=== PATIENT | male | born 1960 | race Caucasian/White ===

== ENCOUNTER 2016-11-09 22:40 | Inpatient (IN) | payer OTHER ==
[~2016-11-09] VITALS: Ht 177.8 cm; Wt 84.1 kg
--- NOTE | ~2016-11-09 | CON ---
[place], [place] REPORT OF CONSULTATION NAME: BELINDA HAMPTON UNIT #: [id number] ROOM: 530 DOCTOR: EDUARDO RaphaelSHYANNE BIRTHDATE: [birth year] DOS: 11/10/2016 WOUND CARE CONSULT HISTORY OF PRESENT ILLNESS: This is a 56-year-old male who presented to the Emergency Department with complaints of increased edema and pain in his right leg since Monday. He apparently had been adjusting his antenna on his roof and had fallen and scraped both of his legs in the knee area and anterior tibias on the chimney and shingles of his roof, that was on Monday. He said he initially tried to clean them and then used some triple antibiotic ointment at home, but when I asked specifically if he really kept them covered, he did not really answer the question. He apparently went to the urgent care the day before with increased redness, swelling around the wounds and discomfort. He was sent home with an antibiotic and some type of topical antibiotic, it sounds like too, but he was not sure what the name of it was then, but despite this, the legs started to worsen with increased pain, swelling of the legs. PAST MEDICAL HISTORY: Significant for coronary artery disease. He is status post CABG in 1999, history of DVT of the right lower extremity, hypertension, hyperlipidemia. SOCIAL HISTORY: He is a smoker one about 1 pack per day since age of 16, does not use illicit drugs, and consumes alcohol. FAMILY HISTORY: Significant for coronary artery disease in the father and the mother who is healthy. ALLERGIES: No known drug allergies. CURRENT MEDICATIONS: He has been ordered vancomycin 1500 mg IV q. 12 hours and Zosyn 3.375 mg IV q. 6 hours. He is on DuoNebs q. 4 hours p.r.n., Restoril p.r.n., Zofran p.r.n., milk of mag p.r.n., Dulcolax p.r.n., [place] one tablet q. 4 hours p.r.n., Tylenol 650 q. 4 hours p.r.n. REVIEW OF SYSTEMS: Other than some pain and discomfort and redness and swelling of the right leg, he says today that the swelling has improved. The redness is improved and the pain is not as bad as it was. He has never had fevers or chills. He denies any chest pains or shortness of breath, nausea, vomiting, abdominal pains. He does state that he has had loose frequent stools since he has been admitted with the antibiotics, so that definitely is a problem for him at this time. There are no reports of weight gain or weight loss. There are no vision changes or dysphagia. No palpitations or dizziness. No dysuria or hematuria. He is able to ambulate. He is not diabetic. PHYSICAL EXAMINATION: VITAL SIGNS: He is afebrile, his pulse is 60, respirations 20, blood pressure is 100/68. GENERAL: This is a male who appears stable and in no acute distress, pleasant and cooperative to examination. HEENT: Extraocular movements are intact. Sclerae are anicteric. [place], [place] REPORT OF CONSULTATION NAME: BELINDA HAMPTON UNIT #: [id number] ROOM: [facility] DOCTOR: SHYANNE CLARK M.D. BIRTHDATE: [birth year] NECK: There is no JVD. LUNGS: Clear to auscultation. CARDIOVASCULAR: S1, S2 regular rate and rhythm. ABDOMEN: Soft, nontender, nondistended. EXTREMITIES: He has some trace edema of the right lower extremity. There is no calf pain. There is some erythema around on the right lower extremity, mostly around the wound. There is still some warmth present and it is tender right near the wound, but not distally. He has got good peripheral pulses. His feet are warm and there is normal capillary refill. He has a fairly large wound on the right anterior leg, that is measuring approximately 9 cm x the measurements in the chart say 7.5, but I got 6.8. There is really no depth at this point and it covered in necrotic tissue with a large amount of fibrin slough. The wounds on his left, he has got 2 separate wounds that are approximately 2 cm in length x 1 cm in width is one wound, the other wound is 2 cm in length x 1 cm in width as well. Two separate wounds that have some dried adherent slough present, those really there is erythema present on the pictures from before antibiotics were started, but the erythema has definitely improved upon examination today. NEUROLOGIC: He is intact and nonfocal. LABORATORY DATA: His white count yesterday or just 6 hours ago was 13.1, now it is 12.8. His chem-7 is within normal limits with glucose of 88. LFTs are normal. He had a lower extremity venous Doppler done this morning, which showed no evidence of DVT. A wound culture yesterday is still pending. Gram stain done is still pending at this time. Due to the extent of necrotic tissue present in the base of the wound, I recommended a debridement. The patient agreed to this. The area was cleansed and prepped with Cetacaine spray for topical anesthesia and debridement was done to remove necrotic tissue only, fibrin and slough was removed with a curette as well as a #15 blade. There was a moderate amount of bleeding that was controlled with pressure. The patient's post debridement measurements are unchanged. The patient, however, did not tolerate debridement very well, so only a minimal debridement was able to be accomplished due to the patient's complaint of pain; however, I was able to remove at least the top layer of some of the necrotic tissue. A swab culture was obtained post debridement of one of the areas centrally that was bleeding and that was taken for culture. ASSESSMENT AND PLAN: Traumatic wounds of bilateral legs with infection and necrotic tissue. He is on broad-spectrum antibiotics. It looks like cultures are pending. I would use TheraHoney for now, Versatel, and 4 x 4's and Kerlix and change it on a daily basis. If the wounds do not improve with this regimen, we may want to consider utilizing Santyl instead, but I would like to try this first. I did do another culture, we should follow the cultures to help guide some of the antimicrobial medications and I think that he is going to have these wounds going to take some time to heal as they are fairly large and extensive and he should follow up in the Wound Clinic upon discharge. [place], [place] REPORT OF CONSULTATION NAME: MEMOBELINDA UNIT #: [id number] ROOM: [facility] DOCTOR: SHYANNE CLARK M.D. BIRTHDATE: [birth year] SHYANNE CLARK MD CM:CONSTR:REPORT OF CONSULTATION 1453 11/11/16 0532 interface
[2016-11-09 22:46] VITALS: BP 126/77
[2016-11-09 23:30] LABS: BASO # 0.1 10*3/uL (0.0-0.1); BASO % 0.9 % (0.0-1.0); EOS # 0.8 10*3/uL (0.0-0.4); EOS % 5.8 % (1.0-4.0); HEMATOCRIT 45.2 % (42.0-52.0); HEMOGLOBIN 15.4 g/dl (14.0-18.0); IG # 0.1 10*3/uL (0.0-0.1); LYMPH # 3.5 10*3/uL (1.3-4.4); LYMPH % 26.3 % (27.0-41.0); MEAN CELL VOLUME 97.6 fl (80.0-94.0); MEAN CORPUSCULAR HGB 33.3 pg (27.0-31.0); MEAN CORPUSCULAR HGB CONC 34.1 g/dl (33.0-37.0); MONO # 0.9 10*3/uL (0.1-1.0); MONO % 7.1 % (3.0-9.0); NEUT # 7.8 10*3/uL (2.3-7.9); NEUT % 59.4 % (47.0-73.0); PLATELET COUNT AUTOMATED 231 10*3/uL (130-400); RED BLOOD COUNT 4.63 10*6/uL (4.50-5.90); RED CELL DISTRI WIDTH 12.7 % (0-14.5); WHITE BLOOD COUNT 13.1 10*3/uL (4.8-10.8)
[2016-11-09] MEDS ORDERED: PRINIVIL5 M1 PO (23:45)
[2016-11-09] MEDS ORDERED: ASPIRIN81 M1 PO (23:46)
[2016-11-09] MEDS ORDERED: COREG25 MG PO (23:46)
[2016-11-09 23:47] LABS: ALBUMIN 3.8 gm/dl (3.1-4.5); ALKALINE PHOSPHATASE 60 U/L (45-117); BILIRUBIN, TOTAL 0.8 mg/dl (0.2-1.0); BUN 13 mg/dl (7-24); CARBON DIOXIDE 28 mmol/L (21-32); CHLORIDE 103 mmol/L (98-107); EST GLOM FILT AFRICAN AMERICAN > 60 ml/min; GLUCOSE 91 mg/dL (65-99); POTASSIUM 4.3 mmol/L (3.5-5.1); SGOT/AST 24 IU/L (3-35); SGPT/ALT 26 U/L (12-78); SODIUM 139 mmol/L (136-145); TOTAL PROTEIN 7.7 gm/dL (6.4-8.2)
[2016-11-09] MEDS ORDERED: XARELTO10 MG PO (23:47)
[2016-11-09] MEDS ORDERED: CEPHALEXIN500 M1 PO (23:47)
[2016-11-09] MEDS ORDERED: ANTIBIOTIC O500 U/GM T (23:47)
[2016-11-09] MEDS ORDERED: ATORVASTATIN CA10 M1 PO (23:47)
[2016-11-10 00:30] VITALS: BP 103/87
[2016-11-10 07:21] LABS: BASO # 0.1 10*3/uL (0.0-0.1); BASO % 0.6 % (0.0-1.0); EOS # 0.7 10*3/uL (0.0-0.4); EOS % 5.2 % (1.0-4.0); HEMOGLOBIN 14.4 g/dl (14.0-18.0); IG # 0.1 10*3/uL (0.0-0.1); LYMPH # 3.1 10*3/uL (1.3-4.4); LYMPH % 24.1 % (27.0-41.0); MEAN CELL VOLUME 98.6 fl (80.0-94.0); MEAN CORPUSCULAR HGB 33.8 pg (27.0-31.0); MEAN CORPUSCULAR HGB CONC 34.3 g/dl (33.0-37.0); MONO # 0.9 10*3/uL (0.1-1.0); MONO % 7.3 % (3.0-9.0); NEUT % 62.3 % (47.0-73.0); PLATELET COUNT AUTOMATED 216 10*3/uL (130-400); RED BLOOD COUNT 4.26 10*6/uL (4.50-5.90); RED CELL DISTRI WIDTH 12.8 % (0-14.5); WHITE BLOOD COUNT 12.8 10*3/uL (4.8-10.8)
[2016-11-10 07:34] LABS: BUN 10 mg/dl (7-24); CARBON DIOXIDE 31 mmol/L (21-32); CHLORIDE 107 mmol/L (98-107); GLUCOSE 88 mg/dL (65-99); POTASSIUM 4.3 mmol/L (3.5-5.1); SODIUM 140 mmol/L (136-145)
[2016-11-10 07:35] LABS: EST GLOM FILT AFRICAN AMERICAN > 60 ml/min
[2016-11-10 07:38] LABS: CHOLESTEROL 126 mg/dL (<200); HDL CHOLESTEROL 51 mg/dl (40-60); LDL CHOLESTEROL 54 mg/dL (9-159); TRIGLYCERIDES 103 mg/dl (<150); VLDL CHOLESTEROL 21 mg/dL (6-40)
[2016-11-10 08:00] VITALS: BP 100/68
[2016-11-10] MEDS ORDERED: NATURE'S BLEND F1 MG PO (15:43)
[2016-11-10] MEDS ORDERED: METFORMIN750 MG PO (15:44)
[2016-11-10] MEDS ORDERED: VITAMIN D1000 IU PO (15:44)
[2016-11-10] MEDS ORDERED: ZESTRIL5 MG PO (15:45)
[2016-11-10] MEDS ORDERED: XARELTO20 M1 PO (15:45)
[2016-11-10] MEDS ORDERED: LIPITOR40 MG PO (15:46)
[2016-11-10] MEDS ORDERED: COREG6.25 MG PO (15:46)
[2016-11-10] MEDS ORDERED: XANAX0.5 MG PO (15:47)
[2016-11-10] MEDS ORDERED: CYMBALTA20 M1 PO (15:51)
[2016-11-10] MEDS ORDERED: RESTORIL15 MG PO (15:55)
[2016-11-10 16:00] VITALS: BP 130/72
[2016-11-10 20:00] VITALS: BP 113/66
[2016-11-11] VITALS: BP 105/67
[2016-11-11 06:35] LABS: BASO # 0.1 10*3/uL (0.0-0.1); BASO % 0.7 % (0.0-1.0); EOS # 0.5 10*3/uL (0.0-0.4); EOS % 6.2 % (1.0-4.0); HEMATOCRIT 42.2 % (42.0-52.0); HEMOGLOBIN 14.2 g/dl (14.0-18.0); IG # 0.1 10*3/uL (0.0-0.1); LYMPH # 2.4 10*3/uL (1.3-4.4); LYMPH % 28.6 % (27.0-41.0); MEAN CELL VOLUME 97.9 fl (80.0-94.0); MEAN CORPUSCULAR HGB 32.9 pg (27.0-31.0); MEAN CORPUSCULAR HGB CONC 33.6 g/dl (33.0-37.0); MEAN PLATELET VOLUME 9.9 fl (9.6-12.3); MONO # 0.6 10*3/uL (0.1-1.0); MONO % 7.2 % (3.0-9.0); NEUT # 4.8 10*3/uL (2.3-7.9); NEUT % 56.5 % (47.0-73.0); PLATELET COUNT AUTOMATED 222 10*3/uL (130-400); RED BLOOD COUNT 4.31 10*6/uL (4.50-5.90); RED CELL DISTRI WIDTH 12.5 % (0-14.5); WHITE BLOOD COUNT 8.4 10*3/uL (4.8-10.8)
== END 2016-11-11 05:54 | disposition left against medical advice (07) | DRG 571 ==
LOC: ED 22:40 → EDHOLD 11-10 00:07 → 5E 11-10 00:07
PROVIDERS: Internal Medicine; Physician Assistant; Student in an Organized Health Care Education/Training Program
PROC: 0HBKXZZ Excision of Right Lower Leg Skin, External Approach (ICD-10-PCS; principal; 2016-11-11)
DX: L03.115 Cellulitis of right lower limb (principal); I25.810 Atherosclerosis of coronary artery bypass graft(s) without angina pectoris; I10 Essential (primary) hypertension; Z53.21 Procedure and treatment not carried out due to patient leaving prior to being seen by health care provider; E78.5 Hyperlipidemia, unspecified; F17.210 Nicotine dependence, cigarettes, uncomplicated; D72.829 Elevated white blood cell count, unspecified; S81.802A Unspecified open wound, left lower leg, initial encounter; S81.801A Unspecified open wound, right lower leg, initial encounter; Z86.718 Personal history of other venous thrombosis and embolism; Z82.49 Family history of ischemic heart disease and other diseases of the circulatory system; Z79.82 Long term (current) use of aspirin; Z79.899 Other long term (current) drug therapy; Z71.6 Tobacco abuse counseling; Z95.1 Presence of aortocoronary bypass graft

== ENCOUNTER → 2016-12-09 | Day surgery (SDC) | payer OTHER ==
[~2016-12-09] VITALS: Ht 177.8 cm; Wt 81.6 kg
[~2016-12-09] MED LIST: ANTIBIOTIC O500 U/GM T; ASPIRIN81 M1 PO; ATORVASTATIN CA10 M1 PO; CEPHALEXIN500 M1 PO; COREG25 MG PO; COREG6.25 MG PO; CYMBALTA20 M1 PO; LIPITOR40 MG PO; METFORMIN750 MG PO; NATURE'S BLEND F1 MG PO; PRINIVIL5 M1 PO; RESTORIL15 MG PO; VITAMIN D1000 IU PO; XANAX0.5 MG PO; XARELTO10 MG PO; XARELTO20 M1 PO; ZESTRIL5 MG PO
[2016-12-09 09:33] VITALS: BP 141/74
[2016-12-09 10:05] VITALS: BP 122/72
[2016-12-09 10:18] VITALS: BP 112/64
== END | disposition home or self-care (01) ==
LOC: SDC 12-06 08:45
DX: Z12.11 Encounter for screening for malignant neoplasm of colon (principal); D12.5 Benign neoplasm of sigmoid colon; I10 Essential (primary) hypertension; I25.2 Old myocardial infarction; I25.10 Atherosclerotic heart disease of native coronary artery without angina pectoris; F32.9 Major depressive disorder, single episode, unspecified; E78.00 Pure hypercholesterolemia, unspecified; Z95.1 Presence of aortocoronary bypass graft; Z86.718 Personal history of other venous thrombosis and embolism; F17.210 Nicotine dependence, cigarettes, uncomplicated

== ENCOUNTER 2017-10-02 10:39 | Emergency (ER) | payer OTHER ==
[~2017-10-02] VITALS: Ht 177.8 cm; Wt 83.9 kg
[2017-10-02 11:05] LABS: BASO # 0.1 10*3/uL (0.0-0.1); BASO % 0.7 % (0.0-1.0); EOS # 0.5 10*3/uL (0.0-0.4); EOS % 4.6 % (1.0-4.0); HEMATOCRIT 44.5 % (42.0-52.0); HEMOGLOBIN 15.5 g/dl (14.0-18.0); LYMPH # 1.5 10*3/uL (1.3-4.4); LYMPH % 14.8 % (27.0-41.0); MEAN CELL VOLUME 93.1 fl (80.0-94.0); MEAN CORPUSCULAR HGB 32.4 pg (27.0-31.0); MEAN CORPUSCULAR HGB CONC 34.8 g/dl (33.0-37.0); MEAN PLATELET VOLUME 9.8 fl (9.6-12.3); MONO # 0.6 10*3/uL (0.1-1.0); MONO % 5.7 % (3.0-9.0); NEUT # 7.5 10*3/uL (2.3-7.9); NEUT % 73.9 % (47.0-73.0); PLATELET COUNT AUTOMATED 226 10*3/uL (130-400); RED BLOOD COUNT 4.78 10*6/uL (4.50-5.90); RED CELL DISTRI WIDTH 12.2 % (0-14.5); WHITE BLOOD COUNT 10.2 10*3/uL (4.8-10.8)
[2017-10-02 11:23] LABS: ALBUMIN 3.8 gm/dl (3.1-4.5); ALKALINE PHOSPHATASE 62 U/L (45-117); BUN 10 mg/dl (7-24); CHLORIDE 102 mmol/L (98-107); CREATININE 1.03 mg/dL (0.70-1.30); POTASSIUM 3.7 mmol/L (3.5-5.1); SGOT/AST 21 IU/L (3-35); SGPT/ALT 26 U/L (12-78); SODIUM 140 mmol/L (136-145); TOTAL PROTEIN 7.4 gm/dL (6.4-8.2)
[2017-10-02] MEDS ORDERED: NAPROSYN500 MG PO (11:37)
[2017-10-02] MEDS ORDERED: CHLORZOXAZONE500 M2 PO (11:37)
== END 2017-10-02 11:39 | disposition home or self-care (01) ==
LOC: ED 10:39
PROVIDERS: Nurse Practitioner Family
DX: M79.662 Pain in left lower leg (principal); I10 Essential (primary) hypertension; I25.10 Atherosclerotic heart disease of native coronary artery without angina pectoris; E78.5 Hyperlipidemia, unspecified; F17.200 Nicotine dependence, unspecified, uncomplicated; Z86.718 Personal history of other venous thrombosis and embolism; Z79.899 Other long term (current) drug therapy

== ENCOUNTER 2017-12-08 16:28 | Emergency (ER) | payer OTHER ==
[~2017-12-08] VITALS: Wt 81.6 kg
[~2017-12-08 16:28] MED LIST changes: +CHLORZOXAZONE500 M2 PO; +NAPROSYN500 MG PO
[2017-12-08 16:44] LABS: BASO # 0.1 10*3/uL (0.0-0.1); BASO % 0.8 % (0.0-1.0); EOS # 0.1 10*3/uL (0.0-0.4); EOS % 1.3 % (1.0-4.0); HEMATOCRIT 49.1 % (42.0-52.0); LYMPH # 1.7 10*3/uL (1.3-4.4); LYMPH % 16.6 % (27.0-41.0); MEAN CELL VOLUME 95.3 fl (80.0-94.0); MEAN CORPUSCULAR HGB CONC 34.6 g/dl (33.0-37.0); MEAN PLATELET VOLUME 9.6 fl (9.6-12.3); MONO # 0.6 10*3/uL (0.1-1.0); MONO % 5.6 % (3.0-9.0); NEUT # 7.9 10*3/uL (2.3-7.9); NEUT % 75.2 % (47.0-73.0); PLATELET COUNT AUTOMATED 226 10*3/uL (130-400); RED BLOOD COUNT 5.15 10*6/uL (4.50-5.90); RED CELL DISTRI WIDTH 13.2 % (0-14.5); WHITE BLOOD COUNT 10.4 10*3/uL (4.8-10.8)
[2017-12-08 17:15] LABS: ALBUMIN 3.9 gm/dl (3.1-4.5); ALKALINE PHOSPHATASE 64 U/L (45-117); BUN 7 mg/dl (7-24); CHLORIDE 106 mmol/L (98-107); CREATININE 1.01 mg/dL (0.70-1.30); LIPASE 195 U/L (73-393); POTASSIUM 3.8 mmol/L (3.5-5.1); SGOT/AST 23 IU/L (3-35); SGPT/ALT 30 U/L (12-78); SODIUM 140 mmol/L (136-145); TOTAL PROTEIN 7.6 gm/dL (6.4-8.2)
[2017-12-08 17:17] LABS: TROPONIN I < 0.015 ng/ml (<0.045)
[2017-12-08] MEDS ORDERED: ZANTAC 150150 MG PO (17:58)
[2017-12-08] MEDS ORDERED: ZOFRAN4 MG PO (17:58)
[2017-12-08] MEDS ORDERED: SUNMARK OMEPRAZ20 MG PO (17:58)
[2017-12-08] MEDS ORDERED: CARAFATE1 G1 PO (17:58)
== END 2017-12-08 18:28 | disposition home or self-care (01) ==
LOC: ED 16:28
PROVIDERS: Nurse Practitioner Family
DX: K29.00 Acute gastritis without bleeding (principal); I10 Essential (primary) hypertension; I25.10 Atherosclerotic heart disease of native coronary artery without angina pectoris; E78.5 Hyperlipidemia, unspecified; F17.200 Nicotine dependence, unspecified, uncomplicated; Z79.899 Other long term (current) drug therapy; Z86.718 Personal history of other venous thrombosis and embolism

== ENCOUNTER 2017-12-17 12:43 | Inpatient (IN) | payer OTHER ==
[~2017-12-17] VITALS: Ht 177.8 cm; Wt 85.4 kg
--- NOTE | ~2017-12-17 | CON ---
[place], [place] REPORT OF CONSULTATION NAME: BELINDA HAMPTON UNIT #: [id number] ROOM: 406 DOCTOR: OSIEL MORRISROSANGELADARIUS BIRTHDATE: [birth year] DOS: 12/18/2017 HISTORY OF PRESENT ILLNESS: The patient is a 57-year-old male who has presented to the Emergency Room with a chief complaint of abdominal pain, left upper quadrant pain, with a history of gastritis in the past. The patient apparently revisited the ER for the same symptomatology, nausea and epigastric pain. His white blood cell at the time of visit was 10.9, H and H of 16 and 48, lactic acid 1.1. Comprehensive metabolic panel, BUN and creatinine 6 and 0.9. Electrolytes balanced. Liver function tests normal. Lipase 610. C-reactive protein 1.5. Sonogram of the abdomen and gallbladder was done, mildly heterogeneous hepatic parenchyma, likely to mild hepatic steatosis, and no cholelithiasis, gallbladder wall thickening or biliary dilations. They were all negative. Urinalysis, 2+ ketones. CT scan of the abdomen and pelvis was organized, findings suspicious for proximal duodenitis and possibly distal gastritis, no evidence of perforation. CBC with differential was reassessed. Hemoglobin A1c was normal. INR was 1. Comprehensive metabolic panel was readdressed. Thyroid normal. LFTs normal. CT scan reports no evidence of pancreatitis mentioned, and liver, spleen, adrenal glands, pancreas they have been declared within normal limits. PAST MEDICAL HISTORY: Coronary artery disease, hemorrhoid, gastritis, DVT, hyperlipidemia, hypertension, nicotine dependency. PAST SURGICAL HISTORY: Coronary artery bypass x 3 grafts, coronary artery stents. SOCIAL HISTORY: Occasional drinker. Active smoker. FAMILY HISTORY: Noncontributory. ALLERGIES: To no known medications. MEDICATIONS: List has been reviewed, including naproxen 500 mg b.i.d., on the other hand on omeprazole 20 mg daily. He has been taking ranitidine also 150 mg b.i.d. in addition to Carafate 1 gram t.i.d. REVIEW OF SYSTEMS: HEENT: Denies double vision or blurred vision. RESPIRATORY: Denies acute shortness of breath. CARDIOVASCULAR: Denies acute chest pain. DIGESTIVE SYSTEM: Nausea, vomiting, epigastric pain. No hematemesis. No hematochezia. No diarrhea. PHYSICAL EXAMINATION: VITAL SIGNS: Stable. HEENT: Head normocephalic, nontraumatic. Mouth and buccal mucosa benign. NECK: Supple. No thyromegaly. No cervical lymphadenopathy. CHEST: Symmetric anatomy, equal expansion. No wheeze. No rhonchi. HEART: Normal sinus rhythm. No gallop. No murmur. ABDOMEN: Soft. No hepato-organomegaly. Bowel sounds present. No pulsatile [place], [place] REPORT OF CONSULTATION NAME: BELINDA HAMPTON UNIT #: [id number] ROOM: [facility] DOCTOR: NAEEM CARTAGENA MD BIRTHDATE: [birth year] mass. Some epigastric tenderness. EXTREMITIES: Dry. No cyanosis. No pedal edema. NEUROLOGIC: Alert and oriented to time, place, person. IMPRESSION: 1. Hyperlipasemia. 2. Left upper quadrant pain. 3. Hypertension. 4. Hypercholesterolemia. 5. Gastritis history. 6. Coronary artery disease. OTHER ADJUNCTIVE DIAGNOSES: As outlined in paragraph, past medical and surgical history. PLAN AND DISCUSSION: We are going to organize an endoscopy of upper GI tract due to the symptomatology of the patient. Thank you very much indeed. NAEEM CARTAGENA MD CM:CONSTR:REPORT OF CONSULTATION 1409 12/19/17 0014 interface
--- NOTE | ~2017-12-17 | O ---
[place], [place] OPERATIVE NOTE NAME: BELINDA HAMPTON UNIT #: [id number] ROOM: 406 DOCTOR: NAEEM CARTAGENA MD BIRTHDATE: [birth year] DOS: 12/18/2017 GASTROENDOSCOPIC REPORT BRIEF HISTORY: The patient has presented to the Emergency Room with nausea, epigastric distress, dyspepsia, left upper quadrant pain, sensation of fullness. The patient's radiologic studies, all main organs have been within normal limits, suspected duodenal thickening and gastric thickening has been reported. The patient has been on naproxen 500 mg b.i.d., on the other hand on H2 michela and PPI therapy and sucralfate management per ER. PROCEDURE: Today's procedure part of investigation is panendoscopy plus biopsy. PREMEDICATION: Propofol. SCOPE: Olympus forward-viewing gastroscope Q10 video. REPORT: After putting the patient in left lateral position and application of lubricant to the scope, the scope was introduced, thereafter under direct visualization advanced through the length of esophagus without difficulty. A 2 cm hiatal hernia was noticed. Gastric pouch was entered, mild gastritis seen. Antrum was biopsied. Duodenal bulb, second and third part within normal limits. GI reflexion of the scope reveals cardia to be benign. Air was suctioned out. The patient was extubated, tolerated the procedure well. IMPRESSION: 1. Small hiatal hernia. 2. Gastritis. PLAN AND DISCUSSION: Continuation with omeprazole 40 mg daily, discontinuation of ranitidine, and completing the supply of Carafate that he has; no longer needs refill on the Carafate. On the other hand, he should take his naproxen when he needs it with antiacid, i.e., Gaviscon tablet. Antireflux measures and stop smoking. As far as lipase is concerned, this should be a reactive issue or adverse stimulation of nicotine consumption in addition to alcohol. We are going to repeat lipase. [place], [place] OPERATIVE NOTE NAME: BELINDA HAMPTON UNIT #: [id number] ROOM: 406 DOCTOR: NAEEM CARTAGENA MD BIRTHDATE: [birth year] NAEEM CARTAGENA MD CM:OPRECORD:OPERATIVE NOTE 1409 [id number] NAEEM CARTAGENA MD 12/19/17 0012 interface
[2017-12-17 12:43] VITALS: BP 141/79
[~2017-12-17 12:43] MED LIST changes: +CARAFATE1 G1 PO; +SUNMARK OMEPRAZ20 MG PO; +ZANTAC 150150 MG PO; +ZOFRAN4 MG PO
[2017-12-17 13:49] LABS: BASO # 0.1 10*3/uL (0.0-0.1); BASO % 0.7 % (0.0-1.0); EOS # 0.3 10*3/uL (0.0-0.4); EOS % 2.8 % (1.0-4.0); HEMATOCRIT 48.9 % (42.0-52.0); HEMOGLOBIN 16.8 g/dl (14.0-18.0); LYMPH # 1.7 10*3/uL (1.3-4.4); LYMPH % 15.7 % (27.0-41.0); MEAN CELL VOLUME 96.8 fl (80.0-94.0); MEAN CORPUSCULAR HGB 33.3 pg (27.0-31.0); MEAN CORPUSCULAR HGB CONC 34.4 g/dl (33.0-37.0); MEAN PLATELET VOLUME 10.2 fl (9.6-12.3); MONO # 0.8 10*3/uL (0.1-1.0); MONO % 7.4 % (3.0-9.0); NEUT % 72.9 % (47.0-73.0); PLATELET COUNT AUTOMATED 247 10*3/uL (130-400); RED BLOOD COUNT 5.05 10*6/uL (4.50-5.90); RED CELL DISTRI WIDTH 13.2 % (0-14.5); WHITE BLOOD COUNT 10.9 10*3/uL (4.8-10.8)
[2017-12-17 14:00] VITALS: BP 138/79
[2017-12-17 14:08] LABS: ALBUMIN 3.7 gm/dl (3.1-4.5); ALKALINE PHOSPHATASE 58 U/L (45-117); BUN 6 mg/dl (7-24); CHLORIDE 105 mmol/L (98-107); CREATININE 0.95 mg/dL (0.70-1.30); LIPASE 610 U/L (73-393); POTASSIUM 4.3 mmol/L (3.5-5.1); SGOT/AST 20 IU/L (3-35); SGPT/ALT 27 U/L (12-78); SODIUM 140 mmol/L (136-145); TOTAL PROTEIN 7.8 gm/dL (6.4-8.2)
[2017-12-17 15:24] LABS: BILIRUBIN NEGATIVE (NEGATIVE); BLOOD TRACE-INTACT (NEGATIVE); CLARITY CLEAR (CLEAR); COLOR YELLOW (YELLOW); GLUCOSE NEGATIVE (NEGATIVE); KETONE 2+ (NEGATIVE); LEUKO ESTERASE NEGATIVE (NEGATIVE); NITRITE NEGATIVE (NEGATIVE); PH 5.5 (5.0-9.0); SPECIFIC GRAVITY 1.025 (1.005-1.030); UROBILINOGEN 0.2 E.U./dl (0.2-1.0)
[2017-12-17 15:25] VITALS: BP 124/68
[2017-12-17 20:00] VITALS: BP 160/77
[2017-12-18] VITALS (8 sets, daily range): BP systolic 115–152; BP diastolic 66–84
[2017-12-18 06:29] LABS: BASO # 0.1 10*3/uL (0.0-0.1); BASO % 0.7 % (0.0-1.0); EOS # 0.4 10*3/uL (0.0-0.4); EOS % 4.2 % (1.0-4.0); HEMATOCRIT 45.2 % (42.0-52.0); HEMOGLOBIN 14.8 g/dl (14.0-18.0); LYMPH # 2.3 10*3/uL (1.3-4.4); LYMPH % 21.6 % (27.0-41.0); MEAN CELL VOLUME 99.1 fl (80.0-94.0); MEAN CORPUSCULAR HGB 32.5 pg (27.0-31.0); MEAN CORPUSCULAR HGB CONC 32.7 g/dl (33.0-37.0); MEAN PLATELET VOLUME 10.3 fl (9.6-12.3); MONO # 0.8 10*3/uL (0.1-1.0); MONO % 7.7 % (3.0-9.0); NEUT # 6.8 10*3/uL (2.3-7.9); NEUT % 65.3 % (47.0-73.0); PLATELET COUNT AUTOMATED 217 10*3/uL (130-400); RED BLOOD COUNT 4.56 10*6/uL (4.50-5.90); RED CELL DISTRI WIDTH 13.2 % (0-14.5); WHITE BLOOD COUNT 10.4 10*3/uL (4.8-10.8)
[2017-12-18 07:01] LABS: ALBUMIN 3.2 gm/dl (3.1-4.5); ALKALINE PHOSPHATASE 44 U/L (45-117); BUN 5 mg/dl (7-24); CHLORIDE 106 mmol/L (98-107); CHOLESTEROL 191 mg/dL (<200); CREATININE 0.93 mg/dL (0.70-1.30); FREE T4 1.08 ng/dl (0.76-1.46); HDL CHOLESTEROL 35 mg/dl (40-60); LDL CHOLESTEROL 129 mg/dL (9-159); PHOSPHOROUS 2.5 mg/dL (2.5-4.9); POTASSIUM 4.1 mmol/L (3.5-5.1); SGOT/AST 16 IU/L (3-35); SGPT/ALT 22 U/L (12-78); SODIUM 143 mmol/L (136-145); TOTAL PROTEIN 6.3 gm/dL (6.4-8.2); TRIGLYCERIDES 136 mg/dl (<150); VLDL CHOLESTEROL 27 mg/dL (6-40)
[2017-12-19] VITALS: BP 138/70
[2017-12-19 06:57] LABS: BASO # 0.1 10*3/uL (0.0-0.1); BASO % 0.7 % (0.0-1.0); EOS # 0.5 10*3/uL (0.0-0.4); EOS % 5.9 % (1.0-4.0); HEMATOCRIT 42.8 % (42.0-52.0); HEMOGLOBIN 14.4 g/dl (14.0-18.0); LYMPH # 1.7 10*3/uL (1.3-4.4); LYMPH % 20.6 % (27.0-41.0); MEAN CELL VOLUME 98.4 fl (80.0-94.0); MEAN CORPUSCULAR HGB 33.1 pg (27.0-31.0); MEAN CORPUSCULAR HGB CONC 33.6 g/dl (33.0-37.0); MEAN PLATELET VOLUME 9.8 fl (9.6-12.3); MONO # 0.7 10*3/uL (0.1-1.0); MONO % 8.6 % (3.0-9.0); NEUT # 5.3 10*3/uL (2.3-7.9); NEUT % 63.6 % (47.0-73.0); PLATELET COUNT AUTOMATED 196 10*3/uL (130-400); RED BLOOD COUNT 4.35 10*6/uL (4.50-5.90); WHITE BLOOD COUNT 8.4 10*3/uL (4.8-10.8)
[2017-12-19 07:22] LABS: BUN 7 mg/dl (7-24); CHLORIDE 106 mmol/L (98-107); CREATININE 0.86 mg/dL (0.70-1.30); LIPASE 567 U/L (73-393); SODIUM 141 mmol/L (136-145)
[2017-12-19 08:00] VITALS: BP 116/82
[2017-12-19 13:00] VITALS: BP 132/80
[2017-12-19] MEDS ORDERED: NAPROSYN500 MG PO (14:04)
[2017-12-19] MEDS ORDERED: GAVISCON ES TA1 EACH PO (14:04)
[2017-12-19] MEDS ORDERED: NORCO 5-325 TA1 EACH PO (14:04)
[2017-12-19] MEDS ORDERED: SUNMARK OMEPRAZ20 MG PO (14:04)
== END 2017-12-19 14:55 | disposition home or self-care (01) | DRG 392 ==
LOC: ED 12:43 → EDHOLD 15:16 → 4E 15:16
PROVIDERS: Family Medicine; Internal Medicine; Internal Medicine Gastroenterology; Physician Assistant
PROC: 0DB68ZX Excision of Stomach, Via Natural or Artificial Opening Endoscopic, Diagnostic (ICD-10-PCS; principal; 2017-12-18)
DX: K29.70 Gastritis, unspecified, without bleeding (principal); E72.3 Disorders of lysine and hydroxylysine metabolism; E78.00 Pure hypercholesterolemia, unspecified; E78.5 Hyperlipidemia, unspecified; I10 Essential (primary) hypertension; R74.8 Abnormal levels of other serum enzymes; K29.80 Duodenitis without bleeding; I25.10 Atherosclerotic heart disease of native coronary artery without angina pectoris; K44.9 Diaphragmatic hernia without obstruction or gangrene; Z71.6 Tobacco abuse counseling; Z86.718 Personal history of other venous thrombosis and embolism; Z72.0 Tobacco use; Z79.899 Other long term (current) drug therapy; Z95.1 Presence of aortocoronary bypass graft; Z82.49 Family history of ischemic heart disease and other diseases of the circulatory system

== ENCOUNTER → 2018-06-02 | Outpatient (CLI) | payer OTHER ==
[~2018-06-02] MED LIST changes: +GAVISCON ES TA1 EACH PO; +NORCO 5-325 TA1 EACH PO
== END | disposition home or self-care (01) ==
LOC: US 08:57
DX: R10.11 Right upper quadrant pain (principal); R11.2 Nausea with vomiting, unspecified

== ENCOUNTER → 2018-06-21 | Outpatient (CLI) | payer OTHER ==
[~2018-06-21] MED LIST changes: +ATIVAN1 MG PO; +VITAMIN B12-FO1 EACH PO
== END | disposition home or self-care (01) ==
LOC: NM 07:00
DX: R10.11 Right upper quadrant pain (principal); R11.0 Nausea; R63.4 Abnormal weight loss; R63.0 Anorexia

== ENCOUNTER → 2018-07-06 | Day surgery (SDC) | payer OTHER ==
[~2018-07-06] VITALS: Ht 177.8 cm; Wt 72.6 kg
[2018-07-06 10:30] VITALS: BP 125/78
--- NOTE | 2018-07-06 13:30 | NUR ---
ERCP CANCELLED DUE TO SCOPE MALFUNCTION. DR CARTAGENA TALKED TO PATIENT AND EXPLAINED. PT EXPRESSED UNDERSTANDING. IV THERAPY DISCONTINUED. LUNCH PROVIDED TO PATIENT. PETER OWUSU RN
== END | disposition home or self-care (01) ==
LOC: SDC 07-04 14:00
DX: R10.11 Right upper quadrant pain (principal); Z53.8 Procedure and treatment not carried out for other reasons

== ENCOUNTER → 2019-08-08 | Outpatient (CLI) | payer OTHER | END | disposition home or self-care (01) | LOC: US 13:21 | DX: M79.662 Pain in left lower leg (principal) ==

== ENCOUNTER → 2023-03-01 | Outpatient (CLI) | payer OTHER ==
[2023-03-01 09:14] LABS: HEMATOCRIT 50.8 % (42.0-52.0); MEAN CORPUSCULAR HGB 34.4 pg (27.0-31.0); MEAN CORPUSCULAR HGB CONC 34.1 g/dl (33.0-37.0); MEAN PLATELET VOLUME 9.7 fl (9.6-12.3); RED BLOOD COUNT 5.03 10*6/uL (4.50-5.90); RED CELL DISTRI WIDTH 12.6 % (0-14.5); WHITE BLOOD COUNT 9.5 10*3/uL (4.8-10.8)
[2023-03-01 09:41] LABS: ALKALINE PHOSPHATASE 51 U/L (46-116); BUN 9 mg/dl (9-23); CHLORIDE 105 mmol/L (98-107); CHOLESTEROL 205 mg/dL (<200); GAMMA GLUTAMYL TRANSPEPTIDASE 35 U/L (0-73); LDL CHOLESTEROL 124 mg/dL (9-159); POTASSIUM 3.9 mmol/L (3.4-5.1); SGPT/ALT 10 U/L (10-49); TOTAL PROTEIN 6.9 gm/dL (6.0-8.0); TRIGLYCERIDES 112 mg/dl (<150)
[2023-03-01 09:46] LABS: VITAMIN D, 25-HYDROXY 30.8 ng/mL (30-100)
== END | disposition home or self-care (01) ==
LOC: LAB 08:25
PROVIDERS: ATTEND Family Medicine
DX: Z00.00 Encounter for general adult medical examination without abnormal findings (principal); Z12.5 Encounter for screening for malignant neoplasm of prostate; E78.00 Pure hypercholesterolemia, unspecified; E55.9 Vitamin D deficiency, unspecified; E03.9 Hypothyroidism, unspecified; I25.10 Atherosclerotic heart disease of native coronary artery without angina pectoris; Z87.891 Personal history of nicotine dependence

== ENCOUNTER → 2023-03-23 | Outpatient (CLI) | payer OTHER | END | disposition home or self-care (01) | LOC: CARD 00:05 | PROVIDERS: ATTEND Family Medicine | DX: I34.0 Nonrheumatic mitral (valve) insufficiency (principal); F10.20 Alcohol dependence, uncomplicated ==

== ENCOUNTER 2023-04-16 09:12 | Emergency (ER) | payer OTHER ==
[~2023-04-16] VITALS: Ht 177.8 cm; Wt 77.1 kg
[2023-04-16] MEDS ORDERED: BACITRACIN28.4 GM TD (09:52)
[2023-04-16] MEDS ORDERED: AMOX-CLAV 875-1 EACH PO (09:52)
== END 2023-04-16 10:06 | disposition home or self-care (01) ==
LOC: ED 09:12
DX: S61.011A Laceration without foreign body of right thumb without damage to nail, initial encounter (principal); F41.9 Anxiety disorder, unspecified; I25.10 Atherosclerotic heart disease of native coronary artery without angina pectoris; Z86.718 Personal history of other venous thrombosis and embolism; E78.00 Pure hypercholesterolemia, unspecified; F32.A Depression, unspecified; I10 Essential (primary) hypertension; E78.5 Hyperlipidemia, unspecified; L03.011 Cellulitis of right finger; I25.2 Old myocardial infarction; Z95.5 Presence of coronary angioplasty implant and graft; Z98.890 Other specified postprocedural states; F17.200 Nicotine dependence, unspecified, uncomplicated; W19.XXXA Unspecified fall, initial encounter; Y93.89 Activity, other specified; Y92.096 Garden or yard of other non-institutional residence as the place of occurrence of the external cause; Y99.8 Other external cause status

== ENCOUNTER → 2024-05-08 | Outpatient (CLI) | payer MEDICARE, MEDICAID ==
[~2024-05-08] MED LIST changes: +AMOX-CLAV 875-1 EACH PO; +BACITRACIN28.4 GM TD
[2024-05-08 08:05] LABS: HEMATOCRIT 48.5 % (42.0-52.0); MEAN CELL VOLUME 95.1 fl (80.0-94.0); MEAN CORPUSCULAR HGB CONC 32.6 g/dl (33.0-37.0); MEAN PLATELET VOLUME 9.5 fl (9.6-12.3); RED BLOOD COUNT 5.1 10*6/uL (4.50-5.90); RED CELL DISTRI WIDTH 12.3 % (0-14.5); WHITE BLOOD COUNT 9.4 10*3/uL (4.8-10.8)
[2024-05-08 08:54] LABS: ALKALINE PHOSPHATASE 56 U/L (46-116); BUN 12 mg/dl (9-23); CHLORIDE 107 mmol/L (98-107); CHOLESTEROL 203 mg/dL (<200); LDL CHOLESTEROL 134 mg/dL (9-159); POTASSIUM 4.6 mmol/L (3.4-5.1); SGPT/ALT 21 U/L (5-49); TOTAL PROTEIN 7.3 gm/dL (6.0-8.0); TRIGLYCERIDES 124 mg/dl (<150)
[2024-05-08 08:56] LABS: VITAMIN D, 25-HYDROXY 25.8 ng/mL (30-100)
== END | disposition home or self-care (01) ==
LOC: LAB 07:34
PROVIDERS: ATTEND Family Medicine
DX: Z12.5 Encounter for screening for malignant neoplasm of prostate (principal); E55.9 Vitamin D deficiency, unspecified; E78.00 Pure hypercholesterolemia, unspecified; J44.9 Chronic obstructive pulmonary disease, unspecified; I25.10 Atherosclerotic heart disease of native coronary artery without angina pectoris; E74.9 Disorder of carbohydrate metabolism, unspecified; F41.1 Generalized anxiety disorder; Z79.899 Other long term (current) drug therapy